=== PATIENT | female | born 1940 | race African-American/Black ===

== ENCOUNTER 2023-01-31 13:07 | Inpatient (IN) | payer MEDICARE, OTHER ==
[~2023-01-31] VITALS: Ht 167.6 cm; Wt 82.6 kg
[2023-01-31 16:31] LABS: BASOPHILS % 0.3 % (0.0-2.0); EOSINOPHILS % 0.1 % (0.0-5.0); HEMATOCRIT. 39.6 % (36.0-48.0); HEMOGLOBIN. 13.2 g/dL (12.0-16.0); LYMPHOCYTES % 23.5 % (20.0-50.0); MEAN CORPUSCULAR HEMOGLOBIN 30.3 pg (28.0-32.0); MEAN CORPUSCULAR VOLUME 90.8 fL (81.0-99.0); MEAN PLATELET VOLUME 7.9 fl (7.4-10.4); MONOCYTES % 7.2 % (2.0-8.0); NEUTROPHILS % 68.9 % (40.0-76.0); PLATELET 247 x1000/uL (130-400); RED BLOOD CELL COUNT 4.36 mill/uL (4.2-5.4); RED CELL DISTRIBUTION WIDTH 14.5 % (11.6-14.6)
[2023-01-31 16:41] LABS: CHLORIDE 109 mEq/L (98-107)
[2023-01-31] MEDS ORDERED: CEFTRIAXONE 1GM PREMIX 50 ML IV ONE (19:00)
[2023-01-31] MEDS ORDERED: SODIUM CHLORIDE 0.9% 1,000 ML IV ONE (19:00)
[2023-01-31] MEDS ORDERED: VANCOMYCIN 1G PREMIX 200 ML IV SCH (19:00)
[2023-02-01] MEDS ORDERED: IPRATROPIUM/ALBUTEROL 0.5-3(2.5)MG/3ML NEB NEB PRN (00:15)
[2023-02-01] MEDS ORDERED: ONDANSETRON HCL 4MG/2ML INJ IV PRN (00:15)
[2023-02-01] MEDS ORDERED: DEXTROSE 50% WATER 50ML SYRINGE IV PRN (00:15)
[2023-02-01] MEDS ORDERED: VANCOMYCIN 1G PREMIX 200 ML IV SCH (00:15)
[2023-02-01] MEDS ORDERED: ACETAMINOPHEN 325MG TABLET PO PRN ×2 (00:15)
[2023-02-01] MEDS ORDERED: CLONIDINE 0.1MG TABLET PO PRN (00:15)
[2023-02-01 04:00] VITALS: BP 104/62
[2023-02-01] MEDS ORDERED: VANCOMYCIN 1G PREMIX 200 ML IV NR (04:45)
[2023-02-01] MEDS: SODIUM CHLORIDE 0.45% 1,000 ML IV SCH ×2 (05:53→13:40)
[2023-02-01] MEDS: BLOOD SUGAR DIAGNOSTIC STRIP TEST SCH ×4 (06:04→20:52)
[2023-02-01 08:01] VITALS: BP 138/103
[2023-02-01 08:04] LABS: BASOPHILS % 0.5 % (0.0-2.0); EOSINOPHILS % 0.3 % (0.0-5.0); HEMATOCRIT. 34.7 % (36.0-48.0); HEMOGLOBIN. 11.4 g/dL (12.0-16.0); LYMPHOCYTES % 33.9 % (20.0-50.0); MEAN CORPUSCULAR HEMOGLOBIN 29.9 pg (28.0-32.0); MEAN CORPUSCULAR VOLUME 91.1 fL (81.0-99.0); MONOCYTES % 7.8 % (2.0-8.0); NEUTROPHILS % 57.5 % (40.0-76.0); PLATELET 223 x1000/uL (130-400); RED BLOOD CELL COUNT 3.81 mill/uL (4.2-5.4); RED CELL DISTRIBUTION WIDTH 14.3 % (11.6-14.6)
[2023-02-01 08:20] LABS: CHLORIDE 110 mEq/L (98-107)
[2023-02-01 08:26] LABS: PHOSPHORUS 2.5 mg/dL (2.5-4.9)
[2023-02-01 08:33] LABS: CREATINE KINASE 767 IU/L (26-192); CREATINE KINASE MB FRACTION 4.1 ng/mL (0.5-3.6); HDL CHOLESTEROL 49 mg/dL (40-59); LDL CHOLESTEROL 59 mg/dL (5-100); T4 FREE 0.64 ng/dL (0.76-1.46)
[2023-02-01] MEDS ORDERED: POTASSIUM CHLORIDE 20MEQ TABLET SR PO NR (08:45)
[2023-02-01] MEDS ORDERED: KCL 20MEQ/100ML PREMIX 100 ML IV NR (08:45)
[2023-02-01 08:52] LABS: FOLIC ACID (FOLATE) SERUM 16.4 ng/mL (>5.38)
[2023-02-01] MEDS: FAMOTIDINE 20MG/2ML VIAL IV SCH (08:56)
[2023-02-01] MEDS: AMLODIPINE 5MG TABLET PO SCH (09:03)
[2023-02-01] MEDS: ENOXAPARIN 40MG/0.4ML SYR SUBCUT SCH (09:04)
[2023-02-01 12:00] VITALS: BP 113/56
[2023-02-01] MEDS: LEVOTHYROXINE SODIUM 50MCG TABLET PO SCH (13:43)
[2023-02-01 16:00] VITALS: BP 110/61
[2023-02-01 16:00] LABS: CREATINE KINASE MB FRACTION 3.5 ng/mL (0.5-3.6)
[2023-02-01] MEDS: CEFTRIAXONE 1GM PREMIX 50 ML IV SCH (18:11)
[2023-02-01 20:00] VITALS: BP 133/67
[2023-02-02] VITALS (7 sets, daily range): BP systolic 101–148; BP diastolic 51–92
[2023-02-02] MEDS: SODIUM CHLORIDE 0.45% 1,000 ML IV SCH ×2 (02:51→17:56)
[2023-02-02] MEDS ORDERED: VANCOMYCIN 1G PREMIX 200 ML IV SCH (06:00)
[2023-02-02 06:33] LABS: EOSINOPHILS % 0.7 % (0.0-5.0); HEMATOCRIT. 32.1 % (36.0-48.0); LYMPHOCYTES % 47.1 % (20.0-50.0); MEAN CORPUSCULAR HEMOGLOBIN 31.3 pg (28.0-32.0); MEAN CORPUSCULAR VOLUME 91.1 fL (81.0-99.0); MEAN PLATELET VOLUME 8.4 fl (7.4-10.4); MONOCYTES % 8.3 % (2.0-8.0); NEUTROPHILS % 42.9 % (40.0-76.0); PLATELET 206 x1000/uL (130-400); RED BLOOD CELL COUNT 3.52 mill/uL (4.2-5.4); RED CELL DISTRIBUTION WIDTH 14.7 % (11.6-14.6)
[2023-02-02] MEDS: BLOOD SUGAR DIAGNOSTIC STRIP TEST SCH ×3 (06:46→16:50)
[2023-02-02] MEDS: LEVOTHYROXINE SODIUM 50MCG TABLET PO SCH (06:53)
[2023-02-02 06:58] LABS: CHLORIDE 109 mEq/L (98-107)
[2023-02-02] MEDS: FAMOTIDINE 20MG/2ML VIAL IV SCH (08:41)
[2023-02-02] MEDS: ENOXAPARIN 40MG/0.4ML SYR SUBCUT SCH (08:41)
[2023-02-02] MEDS: AMLODIPINE 5MG TABLET PO SCH (08:42)
[2023-02-02] MEDS ORDERED: POTASSIUM CHLORIDE 20MEQ TABLET SR PO NR (09:45)
[2023-02-02] MEDS: CEFTRIAXONE 1GM PREMIX 50 ML IV SCH (18:25)
== END 2023-02-02 21:18 | disposition short-term general hospital (02) | DRG 603 ==
LOC: ER 13:07 → ENRESERV 17:32 → MICUSO 21:54 → EDBEDREQ 22:40 → EDBEDREQTM 22:40 → 3WST 02-01 04:30
PROVIDERS: ADMIT Hospitalist; ATTEND Hospitalist
DX: L03.115 Cellulitis of right lower limb (principal); E46 Unspecified protein-calorie malnutrition; L03.116 Cellulitis of left lower limb; I73.9 Peripheral vascular disease, unspecified; I10 Essential (primary) hypertension; E03.9 Hypothyroidism, unspecified; E86.0 Dehydration; I87.2 Venous insufficiency (chronic) (peripheral); L85.3 Xerosis cutis; Z20.822 Contact with and (suspected) exposure to COVID-19; D64.9 Anemia, unspecified; Z91.14 Patient's other noncompliance with medication regimen; Z68.29 Body mass index [BMI] 29.0-29.9, adult; Z88.2 Allergy status to sulfonamides; W18.30XA Fall on same level, unspecified, initial encounter; Y93.89 Activity, other specified; Y92.89 Other specified places as the place of occurrence of the external cause; Y99.8 Other external cause status
CPT/HCPCS: 36415; 71045; 73502; 80048; 80053; 80061; 82040; 82550; 82553; 82607; 82746; 82962; 83036; 83605; 83735; 83880; 84100; 84134; 84145; 84439; 84443; 84484; 85025; 87426; 93005; 93970; 97162; 99285; J0696; J1650; J3370; J3480; J3490; J7030